=== PATIENT | female | born 1940 | race Two or more races ===

== ENCOUNTER → 2020-10-06 12:41 | Outpatient (CLI) | payer OTHER ==
[~2020-10-06 12:41] MED LIST: ADULT LOW DOSE81 M1 PO; AVAPRO150 MG PO
== END | disposition home or self-care (01) ==
LOC: LAB 12:41 → EKG 12:41
PROVIDERS: ATTEND Urology
DX: I10 Essential (primary) hypertension (principal); N39.0 Urinary tract infection, site not specified

== ENCOUNTER 2020-10-18 06:18 | Day surgery (SDC) | payer OTHER | END 2020-10-18 13:30 | disposition home or self-care (01) | LOC: CIR.AMB 06:18 | PROVIDERS: ATTEND Urology | DX: N39.3 Stress incontinence (female) (male) (principal); Z20.828 Contact with and (suspected) exposure to other viral communicable diseases | CPT/HCPCS: 57288; C1771 ==